=== PATIENT | female | born 1985 | race Caucasian/White ===

== ENCOUNTER 2017-06-21 02:48 | Emergency (ER) | payer SELFPAY ==
[2017-06-21] MEDS ORDERED: Lorazepam 2 MG/ML VIAL ONE (03:14)
== END 2017-06-21 05:14 | disposition home or self-care (01) ==
LOC: SCSER 02:48
DX: F41.9 Anxiety disorder, unspecified (principal); R11.2 Nausea with vomiting, unspecified; E11.9 Type 2 diabetes mellitus without complications; E78.5 Hyperlipidemia, unspecified; F32.9 Major depressive disorder, single episode, unspecified; Z79.4 Long term (current) use of insulin; Z79.899 Other long term (current) drug therapy
CPT/HCPCS: 96372; J2060

== ENCOUNTER 2017-06-23 10:04 | Emergency (ER) | payer SELFPAY ==
[2017-06-23 10:57] LABS: Hematocrit 35.3 % (36.0-47.0); Mean Platelet Volume 8.3 fL (7.4-10.4); Red Blood Cell (RBC) Count 3.92 mill/uL (4.20-5.40); White Blood Cell (WBC) Count 10.1 thou/uL (4.8-10.8)
[2017-06-23 11:06] LABS: ALT (SGPT) 17 U/L (8-55); AST (SGOT) 10 U/L (5-34); Alkaline Phosphatase 57 U/L (40-150); Anion Gap 13 mmol/L (10-20); BUN (Urea Nitrogen) 8 mg/dL (7.0-18.7); Bilirubin, Total 0.5 mg/dL (0.2-1.2); Calc. Creatinine Clearance 0 mL/min (70-130); Calcium 9.4 mg/dL (7.8-10.44); Carbon Dioxide 29 mmol/L (22-29); Chloride 103 mmol/L (98-107); Estimated GFR-MDRD Greater than 90; Globulin 2.9 g/dL (2.4-3.5); Protein, Total 6.8 g/dL (6.0-8.3)
[2017-06-23 11:08] LABS: #Basophils 0.1 thou/uL (0.0-0.2); #Eosinphils 0.4 thou/uL (0.0-0.7); #Lymphocytes 2.2 thou/uL (1.20-3.40); #Monocytes 0.4 thou/uL (0.11-0.59); %Basophils 0.7 % (0.0-1.0); %Eosinophils 3.8 % (0.0-10.0); %Lymphocytes 22.2 % (21.0-51.0)
[2017-06-23 11:10] LABS: Troponin I Less than 0.010 ng/mL (< 0.028)
== END 2017-06-23 11:30 | disposition home or self-care (01) ==
LOC: SCSER 10:04
DX: F41.9 Anxiety disorder, unspecified (principal); R60.0 Localized edema; E78.5 Hyperlipidemia, unspecified; E11.9 Type 2 diabetes mellitus without complications; F32.9 Major depressive disorder, single episode, unspecified; Z79.4 Long term (current) use of insulin; Z79.899 Other long term (current) drug therapy
CPT/HCPCS: 80053; 82553; 83880; 84484; 84703; 85025; 85379; 93005

== ENCOUNTER 2017-06-27 07:01 | Emergency (ER) | payer SELFPAY ==
[2017-06-27] MEDS ORDERED: Ondansetron ODT 4 MG TAB ONE (08:51)
== END 2017-06-27 08:25 | disposition home or self-care (01) ==
LOC: SCSER 07:01
DX: K56.41 Fecal impaction (principal); E11.9 Type 2 diabetes mellitus without complications; E78.5 Hyperlipidemia, unspecified; F41.9 Anxiety disorder, unspecified; F32.9 Major depressive disorder, single episode, unspecified; Z79.4 Long term (current) use of insulin; Z79.899 Other long term (current) drug therapy
CPT/HCPCS: 36416; 99283; Q0162

== ENCOUNTER 2017-07-02 19:57 | Emergency (ER) | payer SELFPAY ==
[2017-07-02] MEDS ORDERED: Ketorolac Tromethamine 60 MG/2 ML VIAL ONE (20:53)
[2017-07-02 21:10] LABS: Bilirubin Small (Negative); Blood, Urine Negative (Negative); Glucose, Urine (Dipstick) Negative (Negative); Ketone, Urine Trace mg/dL (Negative); Nitrite Negative (Negative); Protein, Urine (Dipstick) Negative (Neg-Trace)
== END 2017-07-02 21:50 | disposition home or self-care (01) ==
LOC: SCSER 19:57
DX: M62.830 Muscle spasm of back (principal); E11.9 Type 2 diabetes mellitus without complications; E78.5 Hyperlipidemia, unspecified; F41.9 Anxiety disorder, unspecified; F32.9 Major depressive disorder, single episode, unspecified
CPT/HCPCS: 81003; 81025; 96372; J1885

== ENCOUNTER 2017-08-26 04:48 | Emergency (ER) | payer OTHER, SELFPAY ==
[2017-08-26] MEDS ORDERED: Promethazine HCl 25 MG/ML VIAL ONE (05:16)
[2017-08-26 05:23] LABS: #Basophils 0.1 thou/uL (0.0-0.2); #Eosinphils 0.2 thou/uL (0.0-0.7); #Lymphocytes 2.2 thou/uL (1.20-3.40); #Monocytes 0.5 thou/uL (0.11-0.59); #Neutrophils 9.7 thou/uL (1.40-6.50); %Basophils 0.9 % (0.0-1.0); %Eosinophils 1.5 % (0.0-10.0); %Lymphocytes 17.2 % (21.0-51.0); Hematocrit 41.8 % (36.0-47.0); Mean Platelet Volume 8.2 fL (7.4-10.4); Red Blood Cell (RBC) Count 4.84 mill/uL (4.20-5.40); White Blood Cell (WBC) Count 12.7 thou/uL (4.8-10.8)
[2017-08-26 05:34] LABS: ALT (SGPT) 16 U/L (8-55); AST (SGOT) 14 U/L (5-34); Alkaline Phosphatase 75 U/L (40-150); Anion Gap 18 mmol/L (10-20); BUN (Urea Nitrogen) 12 mg/dL (7.0-18.7); Bilirubin, Total 0.5 mg/dL (0.2-1.2); Calc. Creatinine Clearance 0 mL/min (70-130); Calcium 9.8 mg/dL (7.8-10.44); Carbon Dioxide 22 mmol/L (22-29); Chloride 103 mmol/L (98-107); Estimated GFR-MDRD 88; Globulin 3.7 g/dL (2.4-3.5); Lipase 50 U/L (8-78); Protein, Total 7.9 g/dL (6.0-8.3)
== END 2017-08-26 06:28 | disposition home or self-care (01) ==
LOC: SCSER 04:48
DX: E11.43 Type 2 diabetes mellitus with diabetic autonomic (poly)neuropathy (principal); K31.84 Gastroparesis; R11.2 Nausea with vomiting, unspecified; E78.5 Hyperlipidemia, unspecified; F41.9 Anxiety disorder, unspecified; F32.9 Major depressive disorder, single episode, unspecified; Z79.4 Long term (current) use of insulin; Z79.899 Other long term (current) drug therapy
CPT/HCPCS: 80053; 83690; 84703; 85025; 96365; J2550

== ENCOUNTER 2017-08-26 12:30 | Emergency (ER) | payer SELFPAY ==
[2017-08-26] MEDS ORDERED: Lorazepam 2 MG/ML VIAL ONE (13:00)
[2017-08-26] MEDS ORDERED: Ondansetron HCl/PF 4 MG/2 ML Vial ONE (13:15)
[2017-08-26] MEDS ORDERED: Haloperidol Lactate 5 MG/ML VIAL ONE ×2 (13:37→15:19)
[2017-08-26 13:57] LABS: Bilirubin Negative (Negative); Blood, Urine Negative (Negative); Glucose, Urine (Dipstick) >=1000 mg/dL (Negative); Ketone, Urine 40 mg/dL (Negative); Nitrite Negative (Negative); Protein, Urine (Dipstick) Negative (Neg-Trace); Urobilinogen 0.2 mg/dL (0.2-1.0)
[2017-08-26] MEDS ORDERED: Pantoprazole 40 MG VIAL ONE (14:00)
[2017-08-26] MEDS ORDERED: Mag-Al 1200 mg/1200 mg/30 ML UDCUP ONE (14:02)
[2017-08-26] MEDS ORDERED: Lidocaine Viscous Sol 2% 15 ml UD Cup ONE (14:02)
== END 2017-08-26 17:04 | disposition home or self-care (01) ==
LOC: ERS 12:30
DX: R10.30 Lower abdominal pain, unspecified (principal); Z91.14 Patient's other noncompliance with medication regimen; E78.5 Hyperlipidemia, unspecified; E11.43 Type 2 diabetes mellitus with diabetic autonomic (poly)neuropathy; K31.84 Gastroparesis; F41.9 Anxiety disorder, unspecified; F32.9 Major depressive disorder, single episode, unspecified; Z79.4 Long term (current) use of insulin; Z79.899 Other long term (current) drug therapy
CPT/HCPCS: 36416; 81003; 96365; 96375; 96376; C9113; J1630; J2060; J2405

== ENCOUNTER 2017-08-28 02:57 | Observation (INO) | payer OTHER, SELFPAY ==
[2017-08-28] MEDS ORDERED: Promethazine HCl 25 MG/ML VIAL ONE (03:32)
[2017-08-28 03:52] LABS: #Lymphocytes 1.3 thou/uL (1.20-3.40); #Monocytes 0.4 thou/uL (0.11-0.59); #Neutrophils 7.9 thou/uL (1.40-6.50); %Basophils 0.4 % (0.0-1.0); %Eosinophils 0.5 % (0.0-10.0); %Lymphocytes 13.1 % (21.0-51.0); %Monocytes 4.4 % (0.0-10.0); Hematocrit 39.9 % (36.0-47.0); Mean Platelet Volume 7.6 fL (7.4-10.4); White Blood Cell (WBC) Count 9.6 thou/uL (4.8-10.8)
[2017-08-28 04:13] LABS: ALT (SGPT) 16 U/L (8-55); AST (SGOT) 13 U/L (5-34); Alkaline Phosphatase 69 U/L (40-150); Anion Gap 15 mmol/L (10-20); BUN (Urea Nitrogen) 12 mg/dL (7.0-18.7); Bilirubin, Total 0.7 mg/dL (0.2-1.2); Calc. Creatinine Clearance 0 mL/min (70-130); Calcium 9.3 mg/dL (7.8-10.44); Carbon Dioxide 22 mmol/L (22-29); Chloride 103 mmol/L (98-107); Estimated GFR-MDRD Greater than 90; Globulin 3.3 g/dL (2.4-3.5); Lipase 18 U/L (8-78); Protein, Total 7.4 g/dL (6.0-8.3)
[2017-08-28] MEDS ORDERED: Metoclopramide HCl 10 MG/2 ML VIAL ONE (04:25)
[2017-08-28 05:28] LABS: Bilirubin Negative (Negative); Blood, Urine Small (Negative); Glucose, Urine (Dipstick) 100 mg/dL (Negative); Ketone, Urine 80 mg/dL (Negative); Nitrite Negative (Negative); Protein, Urine (Dipstick) Negative (Neg-Trace); Urobilinogen 0.2 mg/dL (0.2-1.0)
[2017-08-28 05:30] LABS: Bacteria/HPF None Seen HPF (None Seen); Hyaline Casts/LPF 7-10 HYALINE CAST LPF (0-3 Hyaline); RBC/HPF 0-3 HPF (0-3); Squamous Epithelial 0-3 HPF (0-3); WBC/HPF 0-3 HPF (0-3)
[2017-08-28] MEDS ORDERED: Lorazepam 2 MG/ML VIAL ONE (06:49)
[2017-08-28] MEDS ORDERED: HumaLOG 300 UNITS/3 ML VIAL SC PRN (07:44)
[2017-08-28] MEDS ORDERED: Metoclopramide HCl 10 MG/2 ML VIAL IVP PRN (07:44)
[2017-08-28] MEDS ORDERED: Ondansetron ODT 4 MG TAB PO PRN ×2 (07:44→14:27)
[2017-08-28] MEDS ORDERED: Acetaminophen 325 MG TAB PO PRN (07:44)
[2017-08-28] MEDS ORDERED: Promethazine HCl 25 MG/ML VIAL IM/IV PRN (07:44)
[2017-08-28] MEDS ORDERED: Sodium Chloride 0.9% 1,000 ML IV SCH (07:44)
[2017-08-28] MEDS ORDERED: Dextrose 5% in Water 1,000 ML IV PRN (07:44)
[2017-08-28] MEDS ORDERED: Dextrose 50% Abboject 50 ML SYRINGE SLOW IVP PRN (07:44)
[2017-08-28] MEDS ORDERED: Ondansetron HCl/PF 4 MG/2 ML Vial IVP PRN (07:44)
[2017-08-28] MEDS ORDERED: Promethazine HCl 25 MG/ML VIAL IM PRN (07:46)
--- NOTE | 2017-08-28 07:58 | CT ---
PRELIMINARY REPORT/[facility]/EMERGENCY AFTER HOURS PROCEDURE: EXAM: CT Abdomen and Pelvis With Intravenous Contrast EXAM DATE/TIME: Exam ordered 08/28/2017 4:44 AM CLINICAL HISTORY: 32 years old, female; Pain; Abdominal pain; Generalized TECHNIQUE: Axial computed tomography images of the abdomen and pelvis with intravenous contrast. Coronal reformatted images were created and reviewed. CONTRAST: 100 mL of ISOVUE administered intravenously. COMPARISON: No relevant prior studies available. FINDINGS: Lower thorax: No acute findings. ABDOMEN: Liver: There is a small region of focal fatty infiltration adjacent to the falciform ligament. Gallbladder and bile ducts: There has been a cholecystectomy. No ductal dilation. Pancreas: The pancreas is normal. No ductal dilation. Spleen: The spleen is normal. Adrenals: The adrenal glands are normal. Kidneys and ureters: The kidneys are normal. No hydronephrosis. Stomach and bowel: The stomach is normal. The duodenum is unremarkable. No obstruction. No mucosal th ickening. Appendix: A normal appendix is identified. PELVIS: Bladder: The bladder is normal. Reproductive: The uterus is normal. ABDOMEN and PELVIS: Intraperitoneal space: Normal. No free air. No significant fluid collection. Bones/joints: No acute fracture or dislocation. Soft tissues: There is a fat-containing umbilical hernia. Vasculature: Normal. No abdominal aortic aneurysm. Lymph nodes: Normal. No enlarged lymph nodes. IMPRESSION: No acute abdominal pelvic pathology. Thank you for allowing us to participate in the care of your patient. Dictated and Authenticated by: Payam Goode MD 08/28/2017 5:23 AM Central Time ([place] & [place]) FINAL REPORT CT ABDOMEN AND PELVIS WITH IV CONTRAST: I agree with the preliminary report given by Dr. Payam Goode of [facility]. POS: [facility]
[2017-08-28 08:01] LABS: Hemoglobin A1c 5.3 % (4.0-6.0)
--- NOTE | 2017-08-28 08:12 | HP-2 ---
CODE STATUS: FULL. PRIMARY CARE PHYSICIAN: Dr. Perrin ATTENDING: Dr. Murphy Calle RESIDENT: Dr. Josette Chamberlain CHIEF COMPLAINT: Nausea, vomiting. HISTORY OF PRESENT ILLNESS: This is a 32-year-old female with past medical history of diabetes mellitus type 2 and marijuana abuse who presents with intractable nausea and vomiting. The patient states that she vomited 14 times overnight. She was seen in the emergency department yesterday and given Phenergan; however, she has not had any relief in symptoms. The patient does see Dr. Perrin and has been prescribed Zofran and Reglan for persistent nausea and vomiting. The patient states she has been unable to keep much down for the past couple of days. She also endorses anxiety and panic attacks Last panic attack was last night. Medications did not help. She endorses marijuana use and states the last time she used was 2 weeks ago. In the ER, the patient was given Phenergan 25 mg, Reglan 10 mg, normal saline 1 liter in the emergency department. PAST MEDICAL HISTORY: 1. Diabetes mellitus type 2. 2. Cannabis abuse. 3. Generalized anxiety disorder. 4. Depression. 5. Fibromyalgia. 6. Severe erosive esophagitis. 7. Hyperlipidemia. 8. Presumed gastroparesis. PAST SURGICAL HISTORY: Cholecystectomy. ALLERGIES: No known drug allergies. MEDICATIONS: 1. Gabapentin 600 mg oral t.i.d. 2. NovoLog 70/30 15 units subcu b.i.d. 3. Zofran 4 mg q.8h. p.r.n. 4. Protonix delayed release 20 mg daily. 5. Reglan 10 mg t.i.d. 6. Buspirone 10 mg t.i.d. 7. Olanzapine 10 mg oral at bedtime. 8. Oxcarbazepine 300 mg b.i.d. 9. Clonazepam 2 mg oral b.i.d. 10. Tramadol 50 mg oral p.r.n. for pain. 11. Zoloft 25 mg q.a.m. FAMILY HISTORY: Noncontributory. SOCIAL HISTORY: The patient denies tobacco or alcohol use. She does endorse marijuana use, last time she used marijuana was 2 weeks ago. REVIEW OF SYSTEMS: A 12 point review of systems was performed. All were negative except as listed in the HPI and as indicated below. The patient does endorse chills overnight. Additionally, she has palpitations and chest discomfort associated with her panic attacks. PHYSICAL EXAMINATION: VITAL SIGNS: Blood pressure 164/98, pulse 82, respiratory rate 18, T-max 97.9, pulse oximetry 99% on room air, currently 99 kilograms. GENERAL: The patient alert and oriented x3, no acute distress, well-developed, well-nourished, obese. EYES: Pupils equal, round, reactive to light and accommodation. Conjunctivae within normal limits. ENT: Nasal mucosa within normal limits. NECK: Supple. CARDIOVASCULAR: Regular rate and rhythm. No murmurs. Radial and pedal pulses 2+. RESPIRATORY: Normal respiratory effort, no retractions, clear to auscultation bilaterally. SKIN: Pale: Warm and dry. No cyanosis or lesions. ABDOMEN: Soft, nontender to palpation. Bowel sounds positive in all 4 quadrants. No masses or distention. EXTREMITIES: No clubbing, cyanosis or edema. MUSCULOSKELETAL: Structure within normal limit. NEUROLOGIC: No focal deficits. GCS 15. PSYCHIATRIC: The patient appeared anxious on exam. LABORATORY DATA: CBC reveals a white blood cell count 9.6, hemoglobin 14.1, hematocrit 39.9, platelet 219. CMP: Sodium 136, potassium 2.6, chloride 103, bicarb 22, BUN 12, creatinine 0.71, glucose 196, calcium 9.3, total protein 7.4, albumin 4.1, total bilirubin 0.7, AST 13, ALT 16, alkaline phosphatase 69. Beta hCG negative. Lipase 18. UA showed small blood with 80 ketones and 100 glucose. There was some hyaline casts 7-10. Abdominal x-ray; no official read; however, there does not appear to be any acute findings. Abdominal pelvis CT, no official read, but does not appear to be any acute findings. ASSESSMENT AND PLAN: This is a 32-year-old female with acute on chronic nausea and vomiting. 1. Acute on chronic nausea and vomiting, likely secondary to gastroparesis versus marijuana use. The patient was admitted to medical floor for observation. She was given additional liter of fluids in the emergency department. She will be placed on normal saline at 150 mL per hour. We will continue Phenergan, Zofran and Reglan for nausea and attempt a p.o. challenge. Hemoglobin A1c is pending to determine how well controlled her diabetes is. 2. Diabetes mellitus type 2. We will continue her home medications, put her on mild sliding scale insulin with appropriate Accu-Cheks. Hemoglobin A1c pending. Gastroparesis secondary to diabetes mellitus type 2 could be contributing to nausea and vomiting. 3. Generalized anxiety disorder/mood disorder. The patient was recently admitted to [facility]. We will continue her medications to include Zoloft, Trileptal and olanzapine. DISPOSITION AND LENGTH OF HOSPITAL STAY: 2 days. Symptomatic medications will be provided. History and physical exam as well as management discussed with Dr. Calle. ANGI
--- NOTE | 2017-08-28 08:28 | RAD ---
KUB: HISTORY: Abdominal pain. Vomiting. FINDINGS: The bowel gas pattern appears nonobstructive. Surgical clips are consistent with a prior cholecystec karma. No renal calculi are seen. There are arthritic changes of the spine. IMPRESSION: No acute findings. POS: [facility]
[2017-08-28] MEDS ORDERED: Famotidine/PF 20 mg/2ml Vial ONE (08:45)
[2017-08-28 08:46] LABS: Amphetamine Not Detected (NotDetected); Methadone Not Detected (NotDetected); Methamphetamine Not Detected (NotDetected)
[2017-08-28] MEDS ORDERED: Famotidine/PF 20 mg/2ml Vial SLOW IVP SCH (09:00)
[2017-08-28 10:17] VITALS: BMI 33.2
--- NOTE | 2017-08-28 12:29 | PDOC.EVN ---
Attending Addendum - Attending Addendum I personally evaluated the patient and discussed the management with Dr. Chamberlain. I agree with the History, Examination, Assessment and Plan documented above with any addition or exceptions noted below. Patient here with multiple episodes of nausea/vomiting after what sounds like a panic attack overnight. Patient reports this is a chronic issue. She had hospitalization a few months ago with GI involvement and EGD that was normal. She was discharged on Reglan, Protonix for possible gastroparesis. However, her current history of vomiting does not sound consistent with gastroparesis. She will be given fluids, nausea medications PRN, and will see if she can tolerate diet. Her CT does not show evidence of pathology. Patient UDS positive for marijuana and this could be contributing to her chronic nausea. Advised abstaining from drug use. Monitor and consider discharge whenever tolerating PO. Needs outpatient follow up with PCP and [facility].
[2017-08-28] MEDS ORDERED: Promethazine HCl 25 MG/ML VIAL IM SCH (12:30)
[2017-08-28] MEDS ORDERED: ISOVUE-370 76%-LOCM 1 ML ONE (13:34)
[2017-08-28] MEDS ORDERED: Diazepam 5 MG TAB PO PRN (14:27)
[2017-08-28] MEDS ORDERED: Gabapentin 300 MG CAP PO SCH (15:00)
[2017-08-28] MEDS ORDERED: Metoclopramide HCl 10 MG TAB PO SCH (15:00)
[2017-08-28 15:35] VITALS: TEMP 98.6
[2017-08-28 16:20] VITALS: BP 135/85
[2017-08-28] MEDS ORDERED: busPIRone HCl 10 MG TAB PO SCH (21:00)
[2017-08-28] MEDS ORDERED: Insulin NPH/Reg Insulin Hm 300 UNITS/3 ML VIAL SC SCH (21:00)
--- NOTE | 2017-08-29 03:06 | DIS-2 ---
DATE OF ADMISSION: 08/28/2017 DATE OF DISCHARGE: 08/28/2017 ADMITTING ATTENDING: Murphy Calle MD DISCHARGE ATTENDING: Murphy Calle MD RESIDENT: Lan Hickey MD. CONSULTATIONS: [facility], but they were not going to see her, as she was not suicidal at this time. PROCEDURES: None. She did get an abdomen x-ray, which showed no acute findings. Abdomen and pelvis CT, which showed no acute abdominal pelvic pathology. DISCHARGE MEDICATIONS: Acetaminophen 325 mg tablet, buspirone 10 mg p.o. b.i.d., diazepam 5 mg p.o. p.r.n., gabapentin 600 mg p.o. t.i.d., insulin Novolin 70/30 of 15 units subcutaneous b.i.d., metoclo pramide 10 mg p.o. t.i.d., Zyprexa 5 mg p.o. daily, ondansetron 4 mg p.o. q.8 hours, pantoprazole 40 mg p.o. daily, sertraline 50 mg p.o. daily. PRIMARY DIAGNOSES: 1. Severe generalized anxiety disorder with ongoing panic attack. 2. Acute on chronic nausea likely secondary to cannabinoid hyperemesis syndrome. 3. Diabetes mellitus, type 2. HISTORY OF PRESENT ILLNESS AND BRIEF HOSPITAL COURSE: This is a 32-year-old female who has had multi ple ER visits from the last 5 days, has a history of diabetes mellitus type 2 and marijuana abuse. S he states that she vomited 14 times overnight, but when we saw her in the ER room, she was just super anxious, very, very worked up, she just said she was alone at home, got scared, got worked up, just had this pain coming up in her abdomen. When we saw her drink, she would take a drink of water and i mmediately throw up. We would give her some Phenergan, if she started on Phenergan, she would then l ater eat lunch and would be able to keep it down, but all during this time she was super anxious and scared to be going home. She never reported being suicidal and we did a urine drug screen, which radha wed that she was positive for marijuana and she said she had smoked in the last 2 weeks, but after ta lking to her, she said she did have recently smoked more recently. At this time, we attributed that her vomiting was likely due to cannabinoid hyperemesis syndrome. I did not see signs of gastroparesi s symptoms. At this time, we tried counseling with [facility], but they were not comes here due to the hol idays and that she was not suicidal, but she does have an appointment with them on 09/14/2017. We to ld her that she needs to follow up with them. We told her that we gave her some resources to look up cognitive behavioral therapies online and she can maybe try at home and told her to use the [facility] hot line as needed. DISPOSITION: Stable. DISCHARGE INSTRUCTIONS: 1. Location: Home. 2. Diet: Diabetic diet. 3. Activity: Tolerated. 4. Followup: We will need to follow up with her primary care physician within 14 days. I mentioned to her that she needs to mention to them about maybe she needs to set up to cognitive behavioral the rapy and then also needs to follow up with her [facility] on scheduled appointment on September.
[2017-08-29] MEDS ORDERED: OLANZapine 5 MG TAB PO SCH (09:00)
== END 2017-08-28 18:24 | disposition home or self-care (01) ==
LOC: ERS 02:57 → ERHOLD 05:51 → 2SW 10:10
PROVIDERS: ADMIT Family Medicine; ATTEND Family Medicine
DX: R11.2 Nausea with vomiting, unspecified (principal); F41.1 Generalized anxiety disorder; E11.9 Type 2 diabetes mellitus without complications; E78.5 Hyperlipidemia, unspecified; F12.10 Cannabis abuse, uncomplicated; Z79.4 Long term (current) use of insulin; Z79.899 Other long term (current) drug therapy; Z90.49 Acquired absence of other specified parts of digestive tract
CPT/HCPCS: 36415; 36416; 51701; 74000; 74177; 80053; 80306; 81003; 81015; 83036; 83690; 84443; 84703; 85025; 96361; 96365; 96367; 96375; A4353; G0378; J2060; J2550; J2765; S0028

== ENCOUNTER 2017-08-29 11:08 | Emergency (ER) | payer SELFPAY ==
[2017-08-29] MEDS ORDERED: diphenhydrAMINE 50 MG/ML VIAL ONE (11:44)
[2017-08-29] MEDS ORDERED: Metoclopramide HCl 10 MG/2 ML VIAL ONE (11:44)
[2017-08-29 12:03] LABS: #Eosinphils 0.1 thou/uL (0.0-0.7); #Monocytes 0.4 thou/uL (0.11-0.59); #Neutrophils 5.8 thou/uL (1.40-6.50); %Basophils 0.3 % (0.0-1.0); %Eosinophils 1.4 % (0.0-10.0); %Lymphocytes 23.8 % (21.0-51.0); %Monocytes 5.1 % (0.0-10.0); Hematocrit 38.8 % (36.0-47.0); Mean Platelet Volume 7.3 fL (7.4-10.4); Red Blood Cell (RBC) Count 4.19 mill/uL (4.20-5.40); White Blood Cell (WBC) Count 8.3 thou/uL (4.8-10.8)
[2017-08-29 12:18] LABS: Bilirubin Small (Negative); Blood, Urine Negative (Negative); Glucose, Urine (Dipstick) Negative (Negative); Ketone, Urine > or equal to 80 mg/dL (Negative); Nitrite Negative (Negative); Protein, Urine (Dipstick) Trace mg/dL (Neg-Trace)
[2017-08-29 12:20] LABS: Bacteria/HPF Rare-Few HPF (None Seen); Hyaline Casts/LPF 0-3 HYALINE CAST LPF (0-3 Hyaline); RBC/HPF 0-3 HPF (0-3); Squamous Epithelial 0-3 HPF (0-3); WBC/HPF 0-3 HPF (0-3)
[2017-08-29] MEDS ORDERED: Diazepam 5 MG TAB ONE (12:21)
[2017-08-29 12:27] LABS: ALT (SGPT) 26 U/L (8-55); AST (SGOT) 23 U/L (5-34); Alkaline Phosphatase 66 U/L (40-150); Anion Gap 14 mmol/L (10-20); BUN (Urea Nitrogen) 7 mg/dL (7.0-18.7); Bilirubin, Total 0.9 mg/dL (0.2-1.2); Calc. Creatinine Clearance 0 mL/min (70-130); Calcium 9.1 mg/dL (7.8-10.44); Carbon Dioxide 23 mmol/L (22-29); Chloride 105 mmol/L (98-107); Estimated GFR-MDRD Greater than 90; Globulin 3.2 g/dL (2.4-3.5); Lipase 5 U/L (8-78); Magnesium 2.1 mg/dL (1.6-2.6); Protein, Total 7.4 g/dL (6.0-8.3)
[2017-08-29] MEDS ORDERED: Haloperidol Lactate 5 MG/ML VIAL ONE (14:00)
[2017-08-29] MEDS ORDERED: Potassium Chloride 20 MEQ TAB ONE (14:45)
== END 2017-08-29 16:32 | disposition home or self-care (01) ==
LOC: ERS 11:08
DX: E11.43 Type 2 diabetes mellitus with diabetic autonomic (poly)neuropathy (principal); K31.84 Gastroparesis; E87.6 Hypokalemia; E78.5 Hyperlipidemia, unspecified; F41.9 Anxiety disorder, unspecified; F32.9 Major depressive disorder, single episode, unspecified
CPT/HCPCS: 36415; 80053; 81003; 81015; 83690; 83735; 85025; 96365; 96366; 96375; J1200; J1630; J2765

== ENCOUNTER 2018-01-10 08:15 | Observation (INO) | payer MEDICAID, OTHER ==
[2018-01-10] MEDS ORDERED: Metoclopramide HCl 10 MG/2 ML VIAL ONE (08:32)
[2018-01-10] MEDS ORDERED: Insulin Regular 300 UNITS/3 ML VIAL ONE (08:32)
[2018-01-10 08:47] LABS: #Basophils 0.1 thou/uL (0.0-0.2); #Eosinphils 0.2 thou/uL (0.0-0.7); #Lymphocytes 3.1 thou/uL (1.20-3.40); #Monocytes 0.8 thou/uL (0.11-0.59); #Neutrophils 12.5 thou/uL (1.40-6.50); %Basophils 0.3 % (0.0-1.0); %Lymphocytes 18.6 % (21.0-51.0); %Monocytes 4.7 % (0.0-10.0); %Neutrophils 75.4 % (42.0-75.0); Hemoglobin 15.3 g/dL (12.0-16.0); Mean Corpuscular HGB CONC 36.3 g/dL (32.0-36.0); Mean Corpuscular Hemoglobin 31.9 pg (27.0-31.0); Mean Corpuscular Volume 87.9 fl (81.0-99.0); Mean Platelet Volume 7.7 fL (7.4-10.4); Platelet Count 309 thou/uL (130-400); RBC Distribution Width 11.6 % (11.5-14.5); White Blood Cell (WBC) Count 16.5 thou/uL (4.8-10.8)
[2018-01-10 08:51] LABS: Base Excess-Venous 0.3 mmol/L (0 (+/- 2.5)); Bicarbonate (HCO3v) 20.7 mmol/L (1.0-85.0); CO2 Tension (PvCO2) 23.5 mmHg (41.0-51.0); Calcium, Ionized 1.06 mmol/L (1.12-1.32); Hemoglobin - Calc 15.3 g/dL (12.0-18.0); O2 Tension (PvO2) 72.6 mmHg (35.0-45.0); Potassium 3.6 mmol/L (3.4-4.7); T. Carbon Dioxide 21.4 mmol/L (1.0-85.0); pH (Venous) 7.552 (7.35-7.45); vO2 Saturation-calc 96.6 % (94-98)
[2018-01-10 09:11] LABS: ALT (SGPT) 23 U/L (8-55); AST (SGOT) 14 U/L (5-34); Acetaminophen Less than 6.0 mcg/mL (10.0-30.0); Albumin 4.3 g/dL (3.5-5.0); Alcohol Less than 10 mg/dL (Less than 10); Alkaline Phosphatase 99 U/L (40-150); Anion Gap 18 mmol/L (10-20); BUN (Urea Nitrogen) 13 mg/dL (7.0-18.7); Bilirubin, Total 0.7 mg/dL (0.2-1.2); Calc. Creatinine Clearance 0 mL/min (70-130); Calcium 9.7 mg/dL (7.8-10.44); Carbon Dioxide 18 mmol/L (22-29); Chloride 99 mmol/L (98-107); Estimated GFR-MDRD 80; Globulin 3.8 g/dL (2.4-3.5); Glucose 424 mg/dL (70-105); Lipase 43 U/L (8-78); Magnesium 1.7 mg/dL (1.6-2.6); Potassium 3.6 mmol/L (3.5-5.1); Protein, Total 8.1 g/dL (6.0-8.3); Salicylate Less than 8.0 mg/dL (15.0-30.0); Sodium 131 mmol/L (136-145)
[2018-01-10 09:13] LABS: Phosphorus 1.8 mg/dL (2.3-4.7)
[2018-01-10] MEDS ORDERED: Lorazepam 2 MG/ML VIAL ONE (09:21)
[2018-01-10 10:06] LABS: Bilirubin Negative (Negative); Blood, Urine Negative (Negative); Clarity CLEAR (Clear); Glucose, Urine (Dipstick) 500 mg/dL (Negative); Leukocyte Negative (Negative); Nitrite Negative (Negative); Protein, Urine (Dipstick) Negative (Neg-Trace); Specific Gravity, Urine 1.036 (1.002-1.036); Urobilinogen 0.2 mg/dL (0.2-1.0)
[2018-01-10 10:07] LABS: Pregnancy Test - Urine (BHCG) Negative (Negative); Pregu Control Background? CLEAR/WHITE (CLR/WHITE); Pregu Control Bar Appear? YES (CONTROL BAR); Specific Gravity 1.036 (1.002-1.036)
[2018-01-10 10:17] LABS: Amphetamine Not Detected (NotDetected); Barbiturates Screen Not Detected (NotDetected); Benzodiazepine Screen Not Detected (NotDetected); Cocaine Metabolite Screen Not Detected (NotDetected); Medtox Control Line Valid? VALID (VALID); Medtox Reader # READER 1; Methadone Not Detected (NotDetected); Methamphetamine Not Detected (NotDetected); Opiate Screen Not Detected (NotDetected); Oxycodone Screen Not Detected (NotDetected); Phencyclidine (PCP) Not Detected (NotDetected); THC/Cannabinoid Screen Detected (NotDetected); Tricyclic Screen Detected (NotDetected)
[2018-01-10] MEDS ORDERED: Ondansetron ODT 8 MG TAB ONE (10:24)
[2018-01-10] MEDS ORDERED: Dextrose 5% in Water 1,000 ML IV PRN (11:33)
[2018-01-10] MEDS ORDERED: Insulin Regular 300 UNITS/3 ML VIAL SC PRN (11:33)
[2018-01-10] MEDS ORDERED: Dextrose 50% Abboject 50 ML SYRINGE SLOW IVP PRN (11:33)
[2018-01-10] MEDS ORDERED: Ondansetron HCl/PF 4 MG/2 ML Vial IVP PRN (11:33)
[2018-01-10] MEDS ORDERED: Acetaminophen 325 MG TAB PO PRN (11:33)
--- NOTE | 2018-01-10 11:42 | PDOC.FPRHP ---
- History of Present Illness Chief Complaint: nausea and vomiting History of Present Illness: Lexis Albrecht is a 32 year old female with a PMH of Type 2 DM, diabetic gastroparesis, chronic back pain, fibromyalgia, anxiety/depression, and peripheral neuropathy who presents with a one day history of nausea and vomiting. Patient is a poor history on our exam. She was given Ativan in the ER for agitation and she does not provide much history. She does state that the nausea and vomiting began this morning. States that this has happened in the past but has not yet happened this year. She endorses constant, crampy diffuse abdominal pain, no radiation. Denies fevers, chills, chest pain, dyspnea, recent illnesses. She is having normal bowel movements, including 2 in the ED prior to be moved to the floor. There is no blood in her stool. ED Course: In the ED, she received 2L of NS, bentyl, zofran, reglan, and ativan. - Allergies/Adverse Reactions Allergies Allergy/AdvReac Type Severity Reaction Status Date / Time No Known Drug Allergies Allergy Verified 05/13/17 16:59 - Home Medications Medication Instructions Recorded Confirmed Type Gabapentin [Neurontin] 600 mg PO TID #90 cap 05/15/17 01/10/18 Rx Insulin NPH Hum/Reg Insulin HM 15 unit SC BID 06/17/17 01/10/18 History [Novolin 70/30] Ondansetron [Zofran ODT] 4 mg PO Q8HR PRN #20 tab 06/19/17 01/10/18 Rx OLANZapine [ZyPREXA] 5 mg PO DAILY 08/28/17 01/10/18 History Sertraline HCl [Zoloft] 100 mg PO DAILY 08/28/17 01/10/18 History busPIRone HCl [Buspar] 10 mg PO BID 08/28/17 01/10/18 History clonazePAM 2 mg PO DAILY PRN 01/10/18 01/10/18 History - History PMHx: Type 2 Diabetes Mellitus, Peripheral Neuropathy, Gastroparesis, Chronic Back Pain, Fibromyalgia, Anxiety/Depression PSHx: Cholecystectomy 2005 FHx: Breast Cancer-maternal side Social: single, lives alone - Review of Systems ROS unobtainable: due to mental status (prior to encounter received ativan and was not all too helpful in providing history) General: reports: weight/appetite/sleep changes. denies: fever/chills, night sweats, fatigue Eyes: denies: eye pain, vision changes ENT: denies: nasal congestion, rhinorrhea Respiratory: denies: cough, congestion, shortness of breath Cardiovascular: denies: chest pain, palpitation, edema, paroxysmal nocturnal dyspnea Gastrointestinal: reports: nausea, vomiting, abdominal pain. denies: diarrhea, constipation, GI bleeding Genitourinary: denies: incontinence, dysuria, polyuria, discharge Skin: denies: rashes, lesions Musculoskeletal: reports: pain. denies: tenderness, stiffness Neurological: denies: numbness, syncope, seizure Psychological: reports: anxiety, depression - Vital signs BP: 106/85 HR: 92 RR: 16 Tmax: 98.0 Pox: 100% on RA Wt: 136 kg - Physical Exam Constitutional: NAD, awake, alert and oriented, well developed HEENT: normocephalic and atraumatic, EOMI, conjunctiva clear, no scleral icterus , grossly normal vision, grossly normal hearing, normal nasal mucosa, MMM Neck: supple, FROM, trachea midline, no JVD Chest: no-tender to palpation, no lesions Heart: RRR, normal S1/S2, no murmurs/rubs/gallops, pulses present, no edema Lungs: CTAB, no respiratory distress, good air movement, no rales/rhonchi, no wheezing, no retractions Abdomen: soft, bowel sounds present, no masses/distention, no hernias -Abdomen: minimal TTP diffusely, no rebound, guarding Musculoskeletal: normal structure, normal tone, ROM grossly normal Neurological: no focal deficit, CN II-XII intact, normal sensation Skin: no rash/lesions, good turgor, capillary refill <2 seconds Heme/Lymphatic: no unusual bruising or bleeding, no purpura Psychiatric: intact recent and remote memory, other (depressed mood and affect, patient seems to lack judgement and insight) FMR H&P: Results - Labs Result Diagrams: 01/11/18 04:33 01/11/18 04:33 Lab results: WBC 16.5 thou/uL (4.8-10.8) H 01/10/18 08:31 Hgb 15.3 g/dL (12.0-16.0) 01/10/18 08:31 Hct 42.2 % (36.0-47.0) 01/10/18 08:31 MCV 87.9 fl (81.0-99.0) 01/10/18 08:31 Plt Count 309 thou/uL (130-400) 01/10/18 08:31 Neutrophils % 75.4 % (42.0-75.0) H 01/10/18 08:31 VBG pCO2 23.5 mmHg (41.0-51.0) L 01/10/18 08:43 VBG pO2 72.6 mmHg (35.0-45.0) H 01/10/18 08:43 Sodium 131 mmol/L (136-145) L 01/10/18 08:31 Potassium 3.6 mmol/L (3.5-5.1) 01/10/18 08:31 Chloride 99 mmol/L (98-107) 01/10/18 08:31 Carbon Dioxide 18 mmol/L (22-29) L 01/10/18 08:31 BUN 13 mg/dL (7.0-18.7) 01/10/18 08:31 Creatinine 0.82 mg/dL (0.6-1.1) 01/10/18 08:31 Glucose 424 mg/dL (70-105) H 01/10/18 08:31 Calcium 9.7 mg/dL (7.8-10.44) 01/10/18 08:31 Total Bilirubin 0.7 mg/dL (0.2-1.2) 01/10/18 08:31 AST 14 U/L (5-34) 01/10/18 08:31 ALT 23 U/L (8-55) 01/10/18 08:31 Alkaline Phosphatase 99 U/L (40-150) 01/10/18 08:31 Serum Total Protein 8.1 g/dL (6.0-8.3) 01/10/18 08:31 Albumin 4.3 g/dL (3.5-5.0) 01/10/18 08:31 Lipase 43 U/L (8-78) 01/10/18 08:31 Urine Ketones 40 mg/dL (Negative) H 01/10/18 09:40 Urine Blood Negative (Negative) 01/10/18 09:40 Urine Nitrite Negative (Negative) 01/10/18 09:40 Ur Leukocyte Esterase Negative (Negative) 01/10/18 09:40 - EKG Interpretation EKG: NSR FMR H&P: A/P - Problem List (1) Intractable nausea and vomiting Status: Acute Code(s): R11.2 - NAUSEA WITH VOMITING, UNSPECIFIED (2) Anxiety and depression Status: Chronic Code(s): F41.8 - OTHER SPECIFIED ANXIETY DISORDERS (3) Cannabis abuse Status: Chronic Code(s): F12.10 - CANNABIS ABUSE, UNCOMPLICATED (4) Diabetes type 2, controlled Status: Chronic Code(s): E11.9 - TYPE 2 DIABETES MELLITUS WITHOUT COMPLICATIONS (5) Obesity (BMI 30.0-34.9) Status: Chronic Code(s): E66.9 - OBESITY, UNSPECIFIED - Plan (1) Intractible Nausea and Vomiting - Place of obs/medical - Likely secondary to diabetic gastroparesis vs marijuana induced, no signs of obstruction, had BM in ED - UDS positive for marijuana - Schedule reglan and PRN zofran for n/v (2) Type 2 DM, uncontrolled - Resume current home regimen, Novolog 15 U SC BID - likely contributing to gastroparesis - Moderate SSI, accuchecks ACHS - Check hga1c (3) Substance abuse-marijuana - UDS positive for thc - residence counselor on cessation - possibly contributing to n/v (4) Anxiety and Depression - continue home regimen - PRN ativan for anxiety/agitation (5) Peripheral Neuropathy - home regimen FMR H&P: Upper Level - Pertinent history 32 yo F with PMH significant for DM2, gastroparesis, fibromyalgia, marijuana abuse presents with N/V. Denies any F/Ch, constipation, diarrhea. Has some mild diffuse abdominal pain. N/V started gradually yesterday and has worsened today. Has reglan rx at home, but was not doing enough to control her symptoms. Pt was slightly agitated on initial presentation to ER but has calmed down after receiving a 1mg dose of ativan in the ER. Currently requesting stronger medication for her nausea, a hot shower, and an Icee. - Pertinent findings VS: 98.0 92 106/85 16 100% RA Gen: Obese female, in NAD HEENT: PERRL, MMM, EOMI CV: RRR no murmurs Pulm: CTAB no wheeze Abd: mildly TTP near epigastrium EXT: no cyanosis or edema Psych: A&Ox3 - Plan Date/Time: 01/10/18 1138 32 yo F p/w N/V 1) intractable N/V: suspect this is either 2/2 uncontrolled gastroparesis vs cannabis-induced hyperemesis. UDS positive for THC. Will admit and observe with symptomatic treatment for nausea. Continue IVFs and NPO status until tolerating more po. 2) DM2: continue home medications 3) gastroparesis: as above 4) anxiety/depression: continue home medications I, [Chadd Hilario], have evaluated this patient and agree with findings/plan as outlined by manager of international resident. Pertinent changes/additions are listed here. Attending Addendum - Attending Addendum Date/Time: 01/10/182128 I personally evaluated the patient and discussed the management with Dr. Calderón, Dr. Hilario, Dr. Chamberlain, and Dr. Patterson I agree with the History, Examination, Assessment and Plan documented above with any addition or exceptions noted below. 32 yo female with multiple medical problems present with N/V. Currently improved with symptom controlled. Concerned related to gastroporesis and marijuana use. IVF provided. No other findings on exam or in history. Will treat for GERD. Reporting some burning at present. Monitor overnight. No concerning findings. Dehydration now resolved. Advanced food as tolerated. Elida
[2018-01-10 12:52] LABS: Hemoglobin A1c 7.4 % (4.0-6.0)
[2018-01-10] MEDS ORDERED: clonazePAM 1 MG TAB PO PRN (13:00)
[2018-01-10 13:28] VITALS: BMI 38.9
[2018-01-10] MEDS: Sodium Chloride 0.9% 1,000 ML IV SCH ×3 (13:38→22:48)
[2018-01-10] MEDS: Promethazine HCl 25 MG/ML VIAL IM/IV PRN ×2 (14:15→19:47)
[2018-01-10] MEDS ORDERED: Lorazepam 2 MG/ML VIAL SLOW IVP PRN (15:00)
[2018-01-10] MEDS: Gabapentin 300 MG CAP PO SCH ×3 (16:09→20:25)
[2018-01-10] MEDS: Lorazepam 2 MG/ML VIAL SLOW IVP PRN (16:10)
[2018-01-10] MEDS: Metoclopramide HCl 10 MG/2 ML VIAL IVP SCH (17:02)
[2018-01-10] MEDS: OLANZapine 5 MG TAB PO SCH ×3 (19:46→23:09)
[2018-01-10] MEDS: busPIRone HCl 10 MG TAB PO SCH ×2 (19:46→20:24)
[2018-01-10] MEDS: Insulin NPH/Reg Insulin Hm 300 UNITS/3 ML VIAL SC SCH (20:10)
[2018-01-10] MEDS ORDERED: Pantoprazole 40 MG VIAL IVP SCH (21:00)
[2018-01-10] MEDS ORDERED: Lidocaine 2% Viscous Solution 10 ML, Aluminum & Magnesium Hydroxide 30 ML SSW SCH (22:45)
[2018-01-11] MEDS: Metoclopramide HCl 10 MG/2 ML VIAL IVP SCH ×2 (00:50→09:01)
[2018-01-11] MEDS: Lorazepam 2 MG/ML VIAL SLOW IVP PRN ×2 (02:03→11:27)
[2018-01-11] MEDS: Promethazine HCl 25 MG/ML VIAL IM/IV PRN (02:05)
[2018-01-11 05:00] LABS: #Eosinphils 0.1 thou/uL (0.0-0.7); #Lymphocytes 3.1 thou/uL (1.20-3.40); #Monocytes 0.8 thou/uL (0.11-0.59); %Basophils 0.3 % (0.0-1.0); %Eosinophils 0.6 % (0.0-10.0); %Lymphocytes 19.4 % (21.0-51.0); %Monocytes 5.1 % (0.0-10.0); %Neutrophils 74.6 % (42.0-75.0); Hemoglobin 12.5 g/dL (12.0-16.0); Mean Corpuscular HGB CONC 35.3 g/dL (32.0-36.0); Mean Corpuscular Hemoglobin 31.5 pg (27.0-31.0); Mean Corpuscular Volume 89.2 fl (81.0-99.0); Mean Platelet Volume 7.5 fL (7.4-10.4); Platelet Count 266 thou/uL (130-400); RBC Distribution Width 11.7 % (11.5-14.5); Red Blood Cell (RBC) Count 3.96 mill/uL (4.20-5.40); White Blood Cell (WBC) Count 16.1 thou/uL (4.8-10.8)
[2018-01-11 05:28] LABS: Anion Gap 11 mmol/L (10-20); BUN (Urea Nitrogen) 9 mg/dL (7.0-18.7); Calc. Creatinine Clearance 270 mL/min (70-130); Calcium 8.2 mg/dL (7.8-10.44); Carbon Dioxide 24 mmol/L (22-29); Chloride 106 mmol/L (98-107); Estimated GFR-MDRD Greater than 90; Glucose 140 mg/dL (70-105); Potassium 3.4 mmol/L (3.5-5.1); Sodium 138 mmol/L (136-145)
[2018-01-11] MEDS ORDERED: Lorazepam 2 MG/ML VIAL SLOW IVP SCH (06:00)
--- NOTE | 2018-01-11 06:19 | PDOC.FM ---
- Subjective Subjective: Lexis Albrecht seen at bedside this morning. She has continued to have nausea and vomiting. Patient states that she felt well for about two hours last night but the nausea and vomiting have returned. She states that she is miserable. She is still having normal BMs and passing flatus. She denies any fever, chills, chest pain, dyspnea. - Objective MAR Reviewed: Yes Vital Signs & Weight: Vital Signs (12 hours) Temp Pulse Resp BP Pulse Ox 01/10/18 18:53 98.6 F 103 H 20 133/79 98 Weight Weight 123.014 kg I&O: 01/09/18 01/10/18 01/11/18 06:59 06:59 06:59 Intake Total 1989 Result Diagrams: 01/11/18 04:33 01/11/18 04:33 <Praveen Calderón - Last Filed: 01/11/18 08:57> - Objective Vital Signs & Weight: Vital Signs (12 hours) Temp Pulse Resp BP BP Pulse Ox 01/11/18 11:25 97.9 F 88 18 159/85 H 98 01/11/18 09:05 98.1 F 94 18 01/11/18 07:27 98.1 F 94 18 140/95 H 98 01/11/18 02:09 84 16 90/50 L 98 Weight Weight 123.014 kg I&O: 01/10/18 01/11/18 01/12/18 06:59 06:59 06:59 Intake Total 1989 Result Diagrams: 01/11/18 04:33 01/11/18 04:33 <Murphy Calle - Last Filed: 01/11/18 11:53> Phys Exam - Physical Examination patient pacing room, appears uncomfortable but nontoxic HEENT: moist MMs, sclera anicteric Neck: no JVD, supple, full ROM Respiratory: no wheezing, no rales, no rhonchi, clear to auscultation bilateral Cardiovascular: RRR, no significant murmur Gastrointestinal: soft, non-tender, no distention no rebound, guarding Musculoskeletal: no edema, pulses present Neurological: non-focal, normal sensation, moves all 4 limbs Psychiatric: A&O x 3 Deviation from normal: lacks insight Skin: no rash, normal turgor <Praveen Calderón - Last Filed: 01/11/18 08:57> Dx/Plan (1) Intractable nausea and vomiting Code(s): R11.2 - NAUSEA WITH VOMITING, UNSPECIFIED Status: Acute (2) Anxiety and depression Code(s): F41.8 - OTHER SPECIFIED ANXIETY DISORDERS Status: Chronic (3) Cannabis abuse Code(s): F12.10 - CANNABIS ABUSE, UNCOMPLICATED Status: Chronic (4) Diabetes type 2, controlled Code(s): E11.9 - TYPE 2 DIABETES MELLITUS WITHOUT COMPLICATIONS Status: Chronic (5) Obesity (BMI 30.0-34.9) Code(s): E66.9 - OBESITY, UNSPECIFIED Status: Chronic - Plan Plan: (1) Intractible Nausea and Vomiting - Place of obs/medical - Likely secondary to diabetic gastroparesis vs marijuana induced, no signs of obstruction, had BM in ED - UDS positive for marijuana - Schedule reglan and PRN zofran for n/v - IVFs NS @170 ml/hr - added GI cocktail which relieved some symptoms for patient overnight (2) Type 2 DM, uncontrolled - Resume current home regimen, Novolog 15 U SC BID - likely contributing to gastroparesis - Moderate SSI, accuchecks ACHS - Check hga1c (3) Substance abuse-marijuana - UDS positive for thc - peer counselor on cessation - possibly contributing to n/v (4) Anxiety and Depression - continue home regimen - PRN ativan for anxiety/agitation (5) Peripheral Neuropathy - home regimen <Praveen Calderón - Last Filed: 01/11/18 08:57> Attending Addendum - Attending Addendum Date/Time: 01/11/18 1151 I personally evaluated the patient and discussed the management with Dr. Calderón. I agree with the History, Examination, Assessment and Plan documented above with any addition or exceptions noted below. Patient with history of chronic nausea/vomiting associated with gastroparesis and likely cannabinoid hyperemesis syndrome admitted once again for similar symptoms. She has been counselled once again on the need to cease use of marijuana to prevent recurrent trips to the ER. Her labs are overall normal, except an older ABG consistent with primary respiratory alkalosis ( no metabolic component). Her nausea is somewhat improved. We will switch Reglan to PO to help prevent dystonic reactions. Will begin IM Phenergan therapy to help with better control. ADAT. Hopeful discharge this afternoon if tolerating clears. <Murphy Calle R - Last Filed: 01/11/18 11:53>
[2018-01-11] MEDS ORDERED: Lidocaine 2% Viscous Solution 20 ML, Aluminum & Magnesium Hydroxide 30 ML, Donnatal Eli... SSW SCH (08:15)
[2018-01-11] MEDS ORDERED: Enoxaparin Sodium 40 MG/0.4 ML SYRINGE SC SCH (09:00)
[2018-01-11] MEDS: Sodium Chloride 0.9% 1,000 ML IV SCH ×2 (09:01→15:58)
[2018-01-11] MEDS: busPIRone HCl 10 MG TAB PO SCH (09:08)
[2018-01-11] MEDS: Gabapentin 300 MG CAP PO SCH ×2 (09:08→15:58)
[2018-01-11] MEDS: Insulin NPH/Reg Insulin Hm 300 UNITS/3 ML VIAL SC SCH (09:08)
[2018-01-11] MEDS ORDERED: Promethazine HCl 25 MG/ML VIAL IM PRN (09:37)
[2018-01-11 11:32] VITALS: BP 159/85; TEMP 97.9
[2018-01-11] MEDS ORDERED: Insulin NPH/Reg Insulin Hm 300 UNITS/3 ML VIAL SC SCH (21:00)
--- NOTE | 2018-01-11 23:49 | DIS-2 ---
DATE OF ADMISSION: 01/10/2018 DATE OF DISCHARGE: 01/11/2018 RESIDENT: Praveen Calderón MD ADMITTING ATTENDING: Dr. Debora Romeo. DISCHARGE ATTENDING: Dr. Murphy Calle. CONSULTATIONS: None. PROCEDURES: None. ADMISSION DIAGNOSES: 1. Intractable nausea and vomiting. 2. Diabetic gastroparesis. 3. Cannabinoid-induced hyperemesis syndrome. 4. Mild dehydration. DISCHARGE DIAGNOSES: 1. Intractable nausea and vomiting - resolved. 2. Diabetic gastroparesis. 3. Tetrahydrocannabinol-induced hyperemesis syndrome. 4. Type 2 diabetes. 5. Mild dehydration - resolved. DISCHARGE MEDICATIONS: Resume all home medications. 1. Gabapentin 600 mg p.o. t.i.d. 2. Novolin 70/30, 50 units subcu b.i.d. 3. Zofran ODT 4 mg p.o. q.8 hours p.r.n. 4. Buspirone 10 mg p.o. b.i.d. 5. Zyprexa 5 mg p.o. daily. 6. Sertraline HCL 100 mg p.o. daily. 7. Clonazepam 2 mg p.o. daily p.r.n. HISTORY OF PRESENT ILLNESS AND HOSPITAL COURSE: Lexis Albrecht is a 32-year-old female with a past medic al history of type 2 diabetes, diabetic gastroparesis, chronic back pain, fibromyalgia, anxiety, depr ession, and peripheral neuropathy who presented to the ED with a 1-day history of nausea and vomiting . The patient has a history of intractable nausea and vomiting secondary to diabetic gastroparesis i n the past. She states that the nausea and vomiting began at the morning of admission and associated with constant, crampy, diffuse abdominal pain. She denies any fevers, chills, chest pain, dyspnea, or recent illness. She has had normal bowel movements including two in the ED prior to bring her to the floor. There was no blood in her stool. In the ED, she received 2 liters normal saline, Bentyl, Zofran, Reglan, and Ativan for agitation. The patient's vitals are stable and labs were significant for white blood cell count of 16.5. Sodium of 131, bicarb of 18, glucose of 424. The patient was p laced on observation for intractable nausea and vomiting. UDS was positive for cannabinoids and tric yclics. UA was only positive for glucose and ketones. Blood gas was significant for pH of 7.552. T he patient's nausea and vomiting was difficult to control initially. Overnight, the patient received Phenergan, Zofran and Reglan which provided minimal relief to the patient at one point during the mi ddle of the night she requested GI cocktail which improved her symptoms for a couple of hours and ret urned. The patient received a GI cocktail later in the morning on 01/11/2018 and it improved her sym ptoms significantly. The patient was feeling much better in the early afternoon on 01/11/2018 and wa s ready for discharge home. It is likely the patient's symptoms were totally related to exposure to smoke marijuana as well as her diabetic gastroparesis. She had no findings concerning for acute abdo men and no signs of obstruction. The patient's symptoms improved within 24 hours of admission. She was cleared for discharge on 01/11/2015 with instructions to follow up with primary care provider. DISPOSITION: Stable. DISCHARGE INSTRUCTIONS: 1. Location: Home. 2. Diet: Diabetic diet. 3. Activity: As tolerated. 4. Followup: Follow up with primary care provider within a week for hospital admission followup.
== END 2018-01-11 16:12 | disposition home or self-care (01) ==
LOC: ERS 08:15 → 2SW 12:18
PROVIDERS: ADMIT Family Medicine; ATTEND Family Medicine
DX: R11.2 Nausea with vomiting, unspecified (principal); F12.188 Cannabis abuse with other cannabis-induced disorder; R11.10 Vomiting, unspecified; E11.43 Type 2 diabetes mellitus with diabetic autonomic (poly)neuropathy; K31.84 Gastroparesis; E86.0 Dehydration; M79.7 Fibromyalgia; F41.8 Other specified anxiety disorders; E66.9 Obesity, unspecified; Z68.38 Body mass index [BMI] 38.0-38.9, adult; Z79.4 Long term (current) use of insulin; Z79.899 Other long term (current) drug therapy
CPT/HCPCS: 36415; 36416; 80048; 80053; 80306; 80307; 81003; 81025; 82010; 82330; 82803; 83036; 83690; 83735; 84100; 85025; 93005; 96361; 96372; 96374; 96375; 96376; A4216; A4353; C9113; G0378; J1650; J1815; J2060; J2550; J2765

== ENCOUNTER 2018-01-12 07:26 | Emergency (ER) | payer OTHER ==
[2018-01-12] MEDS ORDERED: Famotidine 40 MG/4 ML VIAL IVPB SCH (08:45)
[2018-01-12] MEDS ORDERED: busPIRone HCl 10 MG TAB PO SCH (11:45)
== END 2018-01-12 18:27 ==
LOC: ERS 07:26
DX: F32.9 Major depressive disorder, single episode, unspecified (principal); F41.9 Anxiety disorder, unspecified; F12.929 Cannabis use, unspecified with intoxication, unspecified; E11.9 Type 2 diabetes mellitus without complications; E78.5 Hyperlipidemia, unspecified; E78.2 Mixed hyperlipidemia; Z79.899 Other long term (current) drug therapy; Z79.4 Long term (current) use of insulin
CPT/HCPCS: 96360; 96374

== ENCOUNTER 2018-08-02 01:30 | Emergency (ER) | payer OTHER ==
[2018-08-02] MEDS ORDERED: Sulfameth/Trimethoprim DS 800-160mg TAB ONE (01:54)
== END 2018-08-02 02:12 | disposition home or self-care (01) ==
LOC: SCSER 01:30
DX: L03.314 Cellulitis of groin (principal); B35.4 Tinea corporis; B35.6 Tinea cruris; E11.9 Type 2 diabetes mellitus without complications; E78.2 Mixed hyperlipidemia; F41.9 Anxiety disorder, unspecified; F32.9 Major depressive disorder, single episode, unspecified
CPT/HCPCS: 99282

== ENCOUNTER 2018-10-15 17:14 | Emergency (ER) | payer OTHER, SELFPAY | END 2018-10-15 17:40 | disposition home or self-care (01) | LOC: SCSER 17:14 | DX: H92.02 Otalgia, left ear (principal); E11.43 Type 2 diabetes mellitus with diabetic autonomic (poly)neuropathy; K31.84 Gastroparesis; E78.2 Mixed hyperlipidemia; F41.9 Anxiety disorder, unspecified; F32.9 Major depressive disorder, single episode, unspecified; Z79.4 Long term (current) use of insulin | CPT/HCPCS: 99281 ==

== ENCOUNTER 2019-11-05 22:17 | Observation (INO) | payer MEDICAID, OTHER ==
[~2019-11-05 22:17] MED LIST: Iopamidol-370 76% 500 ML 1 ML ONE
--- NOTE | 2019-11-05 22:42 | PDOC.FPRHP ---
- History of Present Illness Chief Complaint: fever and chills History of Present Illness: 34 y/o F with a pmhx of fibromyalgia, Insulin dependent DM type II- uncontrolled , and chronic back pain presents to the ER due to fever of 103 F. PT c/o chills, nausea, back pain, and slight confusion. Pt states last week she had a stomach virus, and then developed worsening fever , painful hives and chills. Went to [facility] and was admitted for 1 day. There she was treated for otits externa and discharged after one day with ear drops, after receiving levaquin. Pt denies any sinus congestion, facial pain, ear pain/blockage/discharge. Pt states the hive rash has gone away and no longer painful. Denies GOODSON, CP, SOB. Denies dark or bloody stools. + anxiety, denies depression or hallucinations. ED corse: pt given ativan, vanc and zosyn at [place] [facility] and transferred to [place] ED. CTA chest neg for PE. CT abd pelvis: no acute findings - Allergies/Adverse Reactions Allergies Allergy/AdvReac Type Severity Reaction Status Date / Time terbinafine Allergy Severe Angioedema Verified 11/06/19 02:38 - Home Medications Medication Instructions Recorded Confirmed Type OLANZapine [ZyPREXA] 5 mg PO HS 08/28/17 11/06/19 History Gabapentin [Neurontin] 1,200 mg PO BID 11/06/19 11/06/19 History Insulin Glargine,Hum.Rec.Anlog 90 unit SC BID 11/06/19 11/06/19 History [Lantus Solostar] Lactobacillus Acidophilus 1 capsule PO DAILY 11/06/19 11/06/19 History [Probiotic] Multivit With Calcium,Iron,Min 1 tablet PO DAILY 11/06/19 11/06/19 History [Women's Daily Formula] cloNIDine [Catapres] 0.1 mg PO HS 11/06/19 11/06/19 History - History PMHx:Fibroyalgia, DM II uncontrolled, chronic back pain, bladder prolapse PSHx: cholecystectomy FHx: Mother: breast CA grandmother: heart disease grandfather: DM II Social: Denies etoh, and tobacco use. Admits to marijuana use off and on. - Vital signs BP: 119/66 HR: 122 RR: 20 Tmax: 103 Pox: 99% on RA Wt: 152 kg - Physical Exam Constitutional: NAD, awake, alert and oriented -Constitutional: obese HEENT: normocephalic and atraumatic, PERRLA, EOMI, conjunctiva clear, no scleral icterus, grossly normal vision, TM's clear and intact (erythematous ear canals bilaterally, no exudates. L TM has scarring), grossly normal hearing, normal nasal mucosa, MMM, oropharynx clear, good dention Neck: supple, FROM, trachea midline Heart: normal S1/S2, no murmurs/rubs/gallops, pulses present -Heart: Tachycardia, HR 122 BLE Pitting edema Pulses 2+ dorsalis pedis bilaterally Lungs: CTAB, no respiratory distress, good air movement, no rales/rhonchi, no wheezing, no retractions Abdomen: soft, non-tender, bowel sounds present, no masses/distention Musculoskeletal: normal structure, normal tone, ROM grossly normal Neurological: no focal deficit, CN II-XII intact, normal sensation Skin: good turgor, capillary refill <2 seconds -Skin: small, diffuse 2 mm maculopapular rash on upper extremities Heme/Lymphatic: no unusual bruising or bleeding Psychiatric: normal mood and affect FMR H&P: Results - Labs Result Diagrams: 11/06/19 00:25 11/05/19 22:56 - EKG Interpretation EKG: sinus tach HR 125 FMR H&P: A/P - Problem List (1) Leukocytosis Current Visit: Yes Status: Acute Code(s): D72.829 - ELEVATED WHITE BLOOD CELL COUNT, UNSPECIFIED Qualifiers: Leukocytosis type: bandemia Qualified Code(s): D72.825 - Bandemia (2) Tachycardia Current Visit: Yes Status: Acute Code(s): R00.0 - TACHYCARDIA, UNSPECIFIED (3) Fever and chills Current Visit: Yes Status: Acute Code(s): R50.9 - FEVER, UNSPECIFIED (4) DM type 2 (diabetes mellitus, type 2) Current Visit: Yes Status: Acute (5) Cannabis abuse Current Visit: No Status: Chronic Code(s): F12.10 - CANNABIS ABUSE, UNCOMPLICATED - Plan 34 y/o F admitted to med obs for fever, tachycardia, leukocytosis with bandemia 1. Fever - Fever 103 max reported from home - ordered Tylenol PRN for fever and pain. - Pt received 3 L NS, Vanc and Zosyn - considering possible rheumatologic cause of fever vs infectious etiology. Consider consulting ID, vs rheum - ESR, CRP, Procal pending 2. Tachycardia - EKG: sinus tach, HR 125 - IVF LR @ 125 ml/hr - UDS pending 3. Leukocytosis with bandemia - WBC 13.5, 89.3% neutrophils - will keep pt on broad spectrum antibiotics until blood cultures result 4. DM Type II, uncontrolled - pt takes 90 units lantus BID - random glucose 286 5. hx of chronic back pain - pain is 7/10 chronically in neck and lower back - continue gabapentin 6. Fibromyalgia - continue home medications Code Status: Full code DVT ppx: lovenox diet: CC Dispo: stable, admit to medical obs for fever of unknown source for antibiotics until blood cultures result and further workup. FMR H&P: Upper Level - Plan Date/Time: 11/05/19 9402 I, Nader Germain MD, have evaluated this patient and agree with findings/ plan as outlined by food and beverage intern resident. Pertinent changes/additions are listed here. 1. Fever - Unclear etiology and no obvious infectious source - Blood cultures pending - Consider Autoimmune vs infectious etiology - ESR, CRP, Procal ordered - Empiric antibiotics - Consider ECHO for endocarditis, however, no risk factors present at this time 2. Tachycardia - s/p 30 ml/kg bolus in ED setting - continue IVF - CTA PE protocol negative in ED 3. DM2 - HgbA1C at [facility] earlier this week 8.6 - Restart home meds - Accuchecks All other chronic conditions reviewed and medications to be restarted as appropriate. CODE STATUS: FULL CODE PCP: Dr. Perrin Disposition: Stable, will admit to medical for further evaluation and management. Addendum - Attending - Attending Attestation Date/Time: 11/06/19 1032 I personally evaluated the patient and discussed the management with Dr. Escobar I agree with the History, Examination, Assessment and Plan documented above with any addition or exceptions noted below. Patient with recurrent visits with history fever generalized rash, recieved broad spectrum antibiotics and additional history of foul diarrhea and fecal incontinence. Recommend further evaluation stool studies lactoferrin, C diff, stool culture, O&P, hepatitis panel, HIV,and VDRL. Patient with depressive symptoms as well. Should be able to de-escalate antibiotic Rocephin and flagyl. Continue IV rehydration.
--- NOTE | 2019-11-05 23:44 | CT ---
EXAM: CT pulmonary angiogram with IV contrast and 3-D MIP reconstructions PROVIDED CLINICAL HISTORY: Fever COMPARISON: None FINDINGS: There is no evidence for central or segmental pulmonary embolus. The lungs are free of significant opacity. No pleural fluid or pneumothorax apparent. No evidence for thoracic lymph node enlargement. The airway appears patent and of normal caliber. The visualized portions of the upper abdomen demonstrate no acute findings. The osseous structures demonstrate no concerning lytic or blastic lesions. IMPRESSION: No evidence for central or segmental pulmonary embolus.
--- NOTE | 2019-11-05 23:47 | CT ---
CT abdomen and pelvis EXAM: CT abdomen and pelvis with IV contrast PROVIDED CLINICAL HISTORY: None COMPARISON: 08/28/2017 FINDINGS: The visualized lung bases are free of significant opacity. The solid abdominal organs demonstrate an unremarkable CT appearance. There is no bowel dilatation, inflammatory fat stranding, free fluid or free air apparent. There is n o evidence for appendicitis. Changes of prior cholecystectomy. No regional lymph node enlargement apparent. The regional major vascular structures appear unremarkable. The osseous structures demonstrate no concerning lytic or blastic lesions. IMPRESSION: No evidence for an acute process.
[2019-11-05] MEDS ORDERED: Ondansetron PF 4 MG/2 ML Vial ONE (23:51)
[2019-11-06 00:35] LABS: #Eosinphils 0.2 thou/uL (0.0-0.7); #Monocytes 0.5 thou/uL (0.11-0.59); #Neutrophils 8.3 thou/uL (1.40-6.50); %Basophils 0.2 % (0.0-1.0); %Eosinophils 1.8 % (0.0-10.0); %Lymphocytes 9.7 % (21.0-51.0); %Monocytes 4.5 % (0.0-10.0); %Neutrophils 83.9 % (42.0-75.0); Hemoglobin 13.4 g/dL (12.0-16.0); Mean Corpuscular HGB CONC 34.9 g/dL (32.0-36.0); Mean Corpuscular Hemoglobin 32.3 pg (27.0-31.0); Mean Corpuscular Volume 92.5 fL (78.0-98.0); Mean Platelet Volume 7.7 fL (7.4-10.4); Platelet Count 241 thou/uL (130-400); RBC Distribution Width 12.9 % (11.5-14.5); Red Blood Cell (RBC) Count 4.16 mill/uL (4.20-5.40); White Blood Cell (WBC) Count 9.9 thou/uL (4.8-10.8)
[2019-11-06] MEDS ORDERED: Vancomycin 1.5 GRAM/300 ML BAG 1.5 GM in Premix Bag 1 BAG IVPB SCH (00:45)
[2019-11-06 01:35] VITALS: BMI 48.3
[2019-11-06] MEDS: Lactated Ringer's 1,000 ML IV SCH ×4 (01:49→23:38)
[2019-11-06] MEDS ORDERED: Piperacillin/Tazobactam 3.375 GM in Sodium Chloride 0.9% 100 ML IVPB SCH (02:00)
[2019-11-06] MEDS: Acetaminophen 325 MG TAB PO PRN ×3 (02:03→20:40)
[2019-11-06 02:20] LABS: ALT (SGPT) 27 U/L (8-55); AST (SGOT) 19 U/L (5-34); Albumin 3.5 g/dL (3.5-5.0); Alkaline Phosphatase 84 U/L (40-110); Anion Gap 17 mmol/L (10-20); BUN (Urea Nitrogen) 17 mg/dL (7.0-18.7); Bilirubin, Total 0.8 mg/dL (0.2-1.2); Calc. Creatinine Clearance 250 mL/min (70-130); Calcium 7.8 mg/dL (7.8-10.44); Carbon Dioxide 18 mmol/L (22-29); Chloride 103 mmol/L (98-107); Estimated GFR-MDRD 87; Globulin 2.9 g/dL (2.4-3.5); Glucose 220 mg/dL (70-105); Potassium 4.2 mmol/L (3.5-5.1); Protein, Total 6.4 g/dL (6.0-8.3); Sodium 134 mmol/L (136-145)
[2019-11-06] MEDS ORDERED: OLANZapine 5 MG TAB PO SCH ×2 (02:30→21:00)
[2019-11-06] MEDS ORDERED: cloNIDine 0.1 MG TAB PO SCH ×2 (02:30→21:00)
[2019-11-06] MEDS ORDERED: Gabapentin 300 MG CAP PO SCH (02:30)
[2019-11-06 02:45] LABS: Amphetamine Not Detected (NotDetected); Barbiturates Screen Not Detected (NotDetected); Benzodiazepine Screen Detected (NotDetected); Cocaine Metabolite Screen Not Detected (NotDetected); Medtox Control Line Valid? VALID (VALID); Medtox Reader # READER 4; Methadone Not Detected (NotDetected); Methamphetamine Not Detected (NotDetected); Opiate Screen Not Detected (NotDetected); Oxycodone Screen Not Detected (NotDetected); Phencyclidine (PCP) Not Detected (NotDetected); THC/Cannabinoid Screen Detected (NotDetected); Tricyclic Screen Not Detected (NotDetected)
[2019-11-06] MEDS ORDERED: HumaLOG 300 UNITS/3 ML VIAL SC PRN (04:20)
[2019-11-06] MEDS ORDERED: Dextrose 5% in Water 1,000 ML IV PRN (04:20)
[2019-11-06] MEDS ORDERED: Dextrose 50% Abboject 50 ML SYRINGE SLOW IVP PRN (04:20)
[2019-11-06] MEDS: Piperacillin/Tazobactam 3.375 GM in Sodium Chloride 0.9% 100 ML IVPB SCH ×4 (05:05→23:37)
[2019-11-06] MEDS: HumaLOG 300 UNITS/3 ML VIAL SC PRN ×2 (05:06→12:52)
[2019-11-06] MEDS: Ondansetron ODT 4 MG TAB PO PRN (05:06)
--- NOTE | 2019-11-06 06:48 | PDOC.FM ---
- Subjective Subjective: Pt had 2 episodes of diarrhea overnight. She was unable to hold her bowels. She has had 10 episodes of diarrhea a day over the previous couple of days. She denies sexual intercourse in 10 years, no vaginal discharge. She has not been anywhere new, eaten anything abnormal. - Objective Vital Signs & Weight: Vital Signs (12 hours) Temp Pulse Resp BP BP Pulse Ox 11/06/19 04:17 99.0 F 104 H 18 105/64 96 11/06/19 02:49 125/75 11/06/19 02:31 107 H 11/06/19 01:00 99.0 F 123 H 18 125/75 97 Weight Weight 152.861 kg Result Diagrams: 11/06/19 00:25 11/05/19 22:56 Phys Exam - Physical Examination Constitutional: NAD HEENT: PERRLA, moist MMs Neck: no JVD, full ROM Respiratory: no wheezing, clear to auscultation bilateral Cardiovascular: RRR, no significant murmur Gastrointestinal: soft, non-tender, positive bowel sounds Musculoskeletal: pulses present trace to 1+ edema Neurological: non-focal, normal sensation Psychiatric: A&O x 3 Deviation from normal: flat affect Dx/Plan (1) DM type 2 (diabetes mellitus, type 2) Status: Acute (2) Fever and chills Code(s): R50.9 - FEVER, UNSPECIFIED Status: Acute (3) Leukocytosis Code(s): D72.829 - ELEVATED WHITE BLOOD CELL COUNT, UNSPECIFIED Status: Acute Qualifiers: Leukocytosis type: bandemia Qualified Code(s): D72.825 - Bandemia (4) Tachycardia Code(s): R00.0 - TACHYCARDIA, UNSPECIFIED Status: Acute (5) Dehydration Code(s): E86.0 - DEHYDRATION Status: Acute - Plan Plan: # Fever - Unclear etiology and no obvious infectious source - Blood cultures pending - pending fecal lactoferrin, O&P, Stool Culture, Campylobacter, Giardia - Consider Autoimmune vs infectious etiology - ESR, CRP, Procal ordered - Empiric antibiotics - Consider ECHO for endocarditis, however, no risk factors present at this time # Tachycardia - s/p 30 ml/kg bolus in ED setting - continue IVF - CTA PE protocol negative in ED # DM2 - HgbA1C at [facility] earlier this week 8.6 - Restart home meds - Accuchecks # Depression - needs to be addressed in outpt setting. All other chronic conditions reviewed and medications to be restarted as appropriate. CODE STATUS: FULL CODE PCP: Dr. Perrin Disposition: Stable, will admit to medical for further evaluation and management. Addendum - Attending - Attending Attestation Date/Time: 11/06/19 0521 I personally evaluated the patient and discussed the management with Dr. Patiño I agree with the History, Examination, Assessment and Plan documented above with any addition or exceptions noted below.
[2019-11-06] MEDS ORDERED: Insulin Glargine 90 UNITS in Pre-Filled Syringe 1 EACH SC SCH (09:00)
[2019-11-06] MEDS ORDERED: Non-Formulary Item 1 EACH (Insulin Glargine,Hum.Rec.Anlog [Lantus Solostar] 90 UNIT) SC SCH (09:00)
[2019-11-06] MEDS: Multivitamin W/ Minerals 1 TAB PO SCH (09:12)
[2019-11-06] MEDS: Enoxaparin Sodium 40 MG/0.4 ML SYRINGE SC SCH (09:12)
[2019-11-06] MEDS: Gabapentin 300 MG CAP PO SCH ×2 (09:12→20:40)
[2019-11-06] MEDS: Lactinex Tablet PO SCH (09:12)
[2019-11-06 10:32] LABS: Syphilis Antibody Nonreactive (Nonreactive); Syphilis Antibody Index 0.05 S/CO (<1.00 Non-Reactive)
[2019-11-06 10:33] LABS: HBSAg Index 0.19 S/CO (0-0.99); HIV (1/2) Antibody/Antigen Non-Reactive (NonReactive); HIV 1/2 INDEX 0.24 S/CO (<1.00); Hep B Core Total Ab Non-Reactive (NonReactive); Hep B Core Total Index 0.11 S/CO (0-0.79); Hep B Surf AB Non-Reactive (NonReactive); Hep B Surf Ag Non-Reactive S/CO (NonReactive); Hep C IgG Ab Non-Reactive (NonReactive); Hep C Index 0.16 S/CO (0-0.79)
[2019-11-06] MEDS ORDERED: Ketorolac Tromethamine 30 MG/ML VIAL IVP PRN (22:13)
[2019-11-06] MEDS: Insulin Glargine 45 UNITS in Pre-Filled Syringe 1 EACH SC SCH ×2 (22:33→22:34)
[2019-11-07 01:17] LABS: Vancomycin, Trough 23.2 ug/mL
[2019-11-07] MEDS: Piperacillin/Tazobactam 3.375 GM in Sodium Chloride 0.9% 100 ML IVPB SCH ×2 (04:12→10:30)
[2019-11-07] MEDS: Acetaminophen 325 MG TAB PO PRN (04:18)
[2019-11-07 05:49] LABS: #Eosinphils 0.3 thou/uL (0.0-0.7); #Lymphocytes 1.8 thou/uL (1.20-3.40); #Monocytes 0.4 thou/uL (0.11-0.59); #Neutrophils 2.9 thou/uL (1.40-6.50); %Basophils 0.2 % (0.0-1.0); %Eosinophils 6.2 % (0.0-10.0); %Lymphocytes 32.7 % (21.0-51.0); %Monocytes 7.3 % (0.0-10.0); %Neutrophils 53.6 % (42.0-75.0); Hemoglobin 11.7 g/dL (12.0-16.0); Mean Corpuscular HGB CONC 35.7 g/dL (32.0-36.0); Mean Corpuscular Hemoglobin 33.1 pg (27.0-31.0); Mean Corpuscular Volume 92.7 fL (78.0-98.0); Mean Platelet Volume 7.9 fL (7.4-10.4); Platelet Count 190 thou/uL (130-400); RBC Distribution Width 12.8 % (11.5-14.5); Red Blood Cell (RBC) Count 3.53 mill/uL (4.20-5.40); White Blood Cell (WBC) Count 5.4 thou/uL (4.8-10.8)
[2019-11-07 06:15] LABS: ALT (SGPT) 24 U/L (8-55); AST (SGOT) 17 U/L (5-34); Alkaline Phosphatase 63 U/L (40-110); Anion Gap 9 mmol/L (10-20); BUN (Urea Nitrogen) 7 mg/dL (7.0-18.7); Bilirubin, Total 0.4 mg/dL (0.2-1.2); Calc. Creatinine Clearance 280 mL/min (70-130); Calcium 7.5 mg/dL (7.8-10.44); Carbon Dioxide 26 mmol/L (22-29); Chloride 105 mmol/L (98-107); Estimated GFR-MDRD Greater than 90; Globulin 2.6 g/dL (2.4-3.5); Glucose 174 mg/dL (70-105); Potassium 3.6 mmol/L (3.5-5.1); Protein, Total 5.6 g/dL (6.0-8.3); Sodium 136 mmol/L (136-145)
--- NOTE | 2019-11-07 07:03 | PDOC.FM ---
- Subjective Subjective: NAEO. Patient reports feeling nauseous again this morning. She has been able to tolerate fluids though. She denies any fever, chills, abdominal pain, vomiting, diarrhea. When asked about her binge eating she states she was previously on prozac. She was also on prozac for anxiety/depression. She states she recently stopped taking this medication because she ran out of the prescription. She feels it did not really help her symptoms anyway and she didn't notice a change being on or off the medication. She states she has also had CBT in the past when she was diagnosed with PTSD. - Objective MAR Reviewed: Yes Vital Signs & Weight: Vital Signs (12 hours) Temp Pulse Resp BP BP BP Pulse Ox 11/07/19 05:44 98.0 F 82 18 118/67 96 11/06/19 23:52 97.8 F 88 18 122/80 98 11/06/19 20:39 118/76 11/06/19 20:00 98.4 F 85 18 118/76 97 11/06/19 19:19 98.3 F 91 18 100/68 Weight Weight 152.861 kg I&O: 11/06/19 11/07/19 11/08/19 06:59 06:59 06:59 Intake Total 3000 Balance 3000 Result Diagrams: 11/07/19 05:06 11/07/19 05:06 Phys Exam - Physical Examination Constitutional: NAD HEENT: PERRLA, moist MMs, sclera anicteric Neck: supple, full ROM Respiratory: clear to auscultation bilateral Cardiovascular: RRR, no significant murmur Gastrointestinal: soft Musculoskeletal: no edema Neurological: non-focal, moves all 4 limbs Psychiatric: normal affect, A&O x 3 Deviation from normal: flat affect Skin: no rash, normal turgor, cap refill <2 seconds Dx/Plan (1) DM type 2 (diabetes mellitus, type 2) Status: Acute (2) Fever and chills Code(s): R50.9 - FEVER, UNSPECIFIED Status: Acute (3) Leukocytosis Code(s): D72.829 - ELEVATED WHITE BLOOD CELL COUNT, UNSPECIFIED Status: Acute Qualifiers: Leukocytosis type: bandemia Qualified Code(s): D72.825 - Bandemia (4) Tachycardia Code(s): R00.0 - TACHYCARDIA, UNSPECIFIED Status: Acute (5) Anxiety and depression Code(s): F41.8 - OTHER SPECIFIED ANXIETY DISORDERS Status: Chronic - Plan Plan: Fever of unknown origin Unclear etiology and no obvious infectious source. Stool studies negative. Positive lactoferrin. ESR normal, CRP elevated. Consider Autoimmune vs infectious etiology. HIV/RPR/Hep panel neg. - Blood cultures NGTD - CRP positive. Procal indeterminant. Can consider autoimmune studies. Flu/ strep swab pending. - Vanc/zosyn for abx coverage. Will de-escalate once further studies are performed. - Consider ECHO for endocarditis, however, no risk factors present at this time. Tachycardia, resolved s/p 30 ml/kg bolus in ED setting. CTA PE protocol negative in ED - Will give IVF as needed. Tolerating PO for now. Concern for Binge Eating Disorder Nutrition consulted for DM education and discovered patterns related to BED. - Can consider outpatient treatment with [facility] vs other for CBT. CM consulted to help with this. Patient not insured so may be difficult. - Patient previously on prozac for this, does not wish to try another SSRI at this time. She is open to counselling. DM2 HgbA1C at [facility] earlier this week 8.6. A1c 9 here. - Restart home meds - Accuchecks - Diabetes education. Nutrition consulted. Psych issues: Depression/anxiety, PTSD - Needs to be addressed in outpt setting. Previously on prozac. Discussed with patient to consider trying another SSRI. All other chronic conditions reviewed and medications to be restarted as appropriate. CODE STATUS: FULL CODE PCP: Dr. Perrin Disposition: Stable, dc in 1- 2 days Case discussed with Dr. Chamberlain Addendum - Attending - Attending Attestation Date/Time: 11/07/19 1049 I personally evaluated the patient and discussed the management with Dr. Aguirre. I agree with the History, Examination, Assessment and Plan documented above with any addition or exceptions noted below. GI upset improved. d/c home today. Encourage marijuana cessation and DM control. Will send with reglan, zofran, and bentyl for sx control PRN. F/U PCP. Cultures and imaging negative. I suspect this may be a diabetic gastroparesis vs IBS vs cannabis induced hyperemesis picture.
[2019-11-07] MEDS: HumaLOG 300 UNITS/3 ML VIAL SC PRN ×2 (07:15→12:41)
[2019-11-07] MEDS: Ondansetron ODT 4 MG TAB PO PRN (08:06)
[2019-11-07] MEDS: Lactinex Tablet PO SCH (08:07)
[2019-11-07] MEDS: Gabapentin 300 MG CAP PO SCH (08:08)
[2019-11-07] MEDS: Insulin Glargine 45 UNITS in Pre-Filled Syringe 1 EACH SC SCH ×2 (08:09→08:10)
[2019-11-07] MEDS: Enoxaparin Sodium 40 MG/0.4 ML SYRINGE SC SCH (08:09)
[2019-11-07] MEDS: Lactated Ringer's 1,000 ML IV SCH (08:11)
[2019-11-07] MEDS: Multivitamin W/ Minerals 1 TAB PO SCH (08:11)
[2019-11-07 12:15] VITALS: BP 125/81; TEMP 97.9
[2019-11-07] MEDS ORDERED: Dicyclomine 10 MG CAP PO SCH (13:00)
--- NOTE | 2019-11-08 07:25 | PQF ---
[employer] Machine Service Supervisor Crystal Reports Winform ViewerSRI FRIEDMAN STEFFEN BUCIO barby [id number] CLINICAL DOCUMENTATION CLARIFICATION FORM: POST DISCHARGE Addendum to original discharge summary date: ____ Late entry note date: __ DATE: 11/08/2019 ATTN: Steffen Lewis Please exercise your independent, professional judgment in responding to the clarification form. Clinical indicators are provided on the bottom of this form for your review Please check appropriate box(s) to clarify if the following diagnosis has been ruled in or ruled out: Sepsis [ ] Ruled in diagnosis [ ] Continue to treat [ ] Resolved [ ] Ruled out diagnosis [ x ] Cannot rule out diagnosis [ ] Other diagnosis [ x] Unable to determine For continuity of documentation, please document condition throughout progress notes and discharge summary. Thank You. CLINICAL INDICATORS - SIGNS / SYMPTOMS / LABS Sepsis w/o source under final diagnosis - ED provider report Patient repsents to the ER due to fever of 103F - [facility] medicine H and P dated 11/06/[address] Steffne Bucio Tachycardia, EKG sinus tach, HR 125 - [facility] medicine H and P dated 11/06/[address] Steffen Bucio Leukocytosis with bandermia, WBC 13.5, 89.3% neutrophils - [facility] medicine H and P dated 11/06/[address] Steffen Bucio Fever, blood culture pending, consider autoimmune vs infectious etiology - Family progress note dated 11/[address] Steffen Bucio RISK FACTORS Bandemia - [facility] medicine H and P dated 11/06/[address] Steffen Bucio TREATMENTS IV Vancomycin started on 11/05 - Medications IV fluids started on 3 - Medications [employer] Service Supervisor Crystal Reports Winform Viewer (This form is maintained as a part of the permanent medical record) 2014 [employer]. All Rights Reserved Red [email or web address] ANGI
--- NOTE | 2019-11-08 12:50 | DIS ---
DATE OF ADMISSION: 11/05/2019 DATE OF DISCHARGE: 11/07/2019 RESIDENT: Madison Aguirre MD ADMITTING ATTENDING: Stefan Heredia MD DISCHARGE ATTENDING: Wilber Chamberlain MD CONSULTS: Dietitian. PROCEDURES: None. DISCHARGE MEDICATIONS: 1. Bentyl 10 mg oral 4 times daily. 2. Zofran 4 mg oral every 6 hours as needed. 3. Reglan 10 mg oral 4 times daily. 4. Zyprexa 5 mg oral at bedtime. 5. Women's Daily Formula one tablet oral daily. 6. Probiotic one capsule oral daily. 7. Catapres 0.1 mg oral at bedtime. 8. Gabapentin 1200 mg oral twice daily. 9. Lantus 90 units subcutaneously twice daily. DISCONTINUED MEDICATIONS: None. PRIMARY DIAGNOSES: 1. Fever of unknown source 2. tachycardia 3. binge eating disorder SECONDARY DIAGNOSES: 1. Type 2 diabetes 2. depression/anxiety 3. PTSD HISTORY OF PRESENT ILLNESS/HOSPITAL COURSE: This is a 34-year-old female, who presented to the ER because of a fever of 103 degrees Fahrenheit. The patient also complained of chills, nausea, back pain, and slight confusion at the time as well. The patient states that about a week ago, she had a stomach virus that then developed worsening fever, hives as well as chills. She was admitted to the [facility] at that time. She was treated for an otitis externa and discharged after one day with ear drops and after being treated with Levaquin as well. The patient was given Ativan, vancomycin, and Zosyn at the [facility] ER and transferred to our ER. The patient had a negative CTA chest as well as a CT abdomen and pelvis. The patient's vitals were significant for a heart rate of 122 and a temperature of 103 degrees Fahrenheit on admission. The patient's labs were significant for a glucose of 220. The patient was admitted to medical floor for workup of her fever of unknown source. The patient was given Tylenol as needed for fever. She was continued on vancomycin and Zosyn for one day. The patient was also started on fluids for her tachycardia and fever. The patient's workup for her fever revealed a procal that was negative, ESR was normal, CRP was mildly elevated. Stool studies were negative. HIV, RPR, and hepatitis studies negative. The patient had a flu swab done that was negative. The patient's symptoms did improve throughout her stay. She was given Bentyl and Reglan for abdominal pain and nausea that improved with those medications. Her chronic conditions remained stable throughout her stay. It was noted when the patient talked to the dietitian about her diabetes diet that she had some binge like eating behaviors. The patient was previously treated on an SSRI for PTSD and binge eating disorder, but she recently ran out of that and did not want to restart it. I advised the patient that she could try another SSRI and/or do outpatient counseling for CBT. The patient will follow up with her PCP on these issues. DISPOSITION: Stable. DISCHARGE INSTRUCTIONS: 1. Location: Home. 2. Activity: Ad kaylee. 3. Diet: Diabetic diet. 4. Followup: With PCP, Dr. Perrin within one week. Job ID: [id number] MTDD
== END 2019-11-07 13:43 | disposition home or self-care (01) ==
LOC: ERS 22:17 → T4-B 23:16 → INTOOBSV 23:16 → T4-B 11-06 00:56
PROVIDERS: ADMIT Family Medicine; ATTEND Family Medicine
DX: R50.9 Fever, unspecified (principal); R21 Rash and other nonspecific skin eruption; R00.0 Tachycardia, unspecified; D72.825 Bandemia; G89.29 Other chronic pain; M54.9 Dorsalgia, unspecified; M79.7 Fibromyalgia; F12.10 Cannabis abuse, uncomplicated; E78.5 Hyperlipidemia, unspecified; E78.00 Pure hypercholesterolemia, unspecified; E11.43 Type 2 diabetes mellitus with diabetic autonomic (poly)neuropathy; K31.84 Gastroparesis; F41.8 Other specified anxiety disorders; F43.10 Post-traumatic stress disorder, unspecified; R19.7 Diarrhea, unspecified; E66.9 Obesity, unspecified; Z68.42 Body mass index [BMI] 45.0-49.9, adult; Z79.4 Long term (current) use of insulin; Z79.899 Other long term (current) drug therapy; Z88.8 Allergy status to other drugs, medicaments and biological substances
CPT/HCPCS: 36415; 36416; 71275; 74177; 80053; 80202; 80306; 83036; 83605; 83630; 84145; 84443; 84484; 85025; 85652; 86038; 86060; 86140; 86225; 86674; 86704; 86706; 86780; 86803; 87045; 87046; 87324; 87328; 87329; 87340; 87389; 87427; 87449; 87631; 96374; J1650; J1815; J1885; J2405; J2543; J3370; J3490; J7050; Q0162; Q9967

== ENCOUNTER 2020-03-21 21:53 | Emergency (ER) | payer OTHER ==
[2020-03-21] MEDS ORDERED: Ondansetron PF 4 MG/2 ML Vial ONE (22:45)
[2020-03-21 23:07] LABS: #Eosinphils 0.1 thou/uL (0.0-0.7); #Lymphocytes 2.6 thou/uL (1.20-3.40); #Neutrophils 13.8 thou/uL (1.40-6.50); %Basophils 0.1 % (0.0-1.0); %Eosinophils 0.3 % (0.0-10.0); %Monocytes 5.6 % (0.0-10.0); Hemoglobin 13.6 g/dL (12.0-16.0); Mean Corpuscular HGB CONC 34.1 g/dL (32.0-36.0); Mean Corpuscular Hemoglobin 32.1 pg (27.0-31.0); Mean Corpuscular Volume 94.3 fL (78.0-98.0); Platelet Count 281 thou/uL (130-400); RBC Distribution Width 12.6 % (11.5-14.5); Red Blood Cell (RBC) Count 4.24 mill/uL (4.20-5.40); White Blood Cell (WBC) Count 17.5 thou/uL (4.8-10.8)
[2020-03-21 23:12] LABS: ALT (SGPT) 39 U/L (8-55); AST (SGOT) 51 U/L (5-34); Albumin 3.9 g/dL (3.5-5.0); Alkaline Phosphatase 79 U/L (40-110); Anion Gap 13 mmol/L (10-20); BUN (Urea Nitrogen) 10 mg/dL (7.0-18.7); Bilirubin, Total 0.7 mg/dL (0.2-1.2); CK (CPK) 1709 U/L (29-168); Calc. Creatinine Clearance 0 mL/min (70-130); Calcium 8.6 mg/dL (7.8-10.44); Carbon Dioxide 29 mmol/L (22-29); Chloride 96 mmol/L (98-107); Estimated GFR-MDRD Greater than 90; Globulin 3.2 g/dL (2.4-3.5); Glucose 192 mg/dL (70-105); Lipase 21 U/L (8-78); Potassium 3.7 mmol/L (3.5-5.1); Protein, Total 7.1 g/dL (6.0-8.3); Sodium 134 mmol/L (136-145)
[2020-03-21] MEDS ORDERED: Metoclopramide HCl 10 MG/2 ML VIAL ONE (23:16)
[2020-03-21 23:18] LABS: Bilirubin Negative (Negative); Blood, Urine Negative (Negative); Clarity Clear (Clear); Glucose, Urine (Dipstick) Normal (Negative); Ketone, Urine 20 mg/dL (Negative); Leukocyte Negative Leu/uL (Negative); Nitrite Negative (Negative); Protein, Urine (Dipstick) 20 mg/dL (Neg-Trace); Specific Gravity, Urine 1.027 (1.002-1.036); Urobilinogen Normal mg/dL (Less than 2)
[2020-03-21 23:19] LABS: Pregnancy Test - Urine (BHCG) Negative (Negative); Pregu Control Background? CLEAR/WHITE (CLR/WHITE); Pregu Control Bar Appear? YES (CONTROL BAR); Specific Gravity 1.027 (1.002-1.036)
[2020-03-21 23:51] LABS: CKMB 2.7 ng/mL (0-6.6)
[2020-03-22] MEDS ORDERED: Ondansetron ODT 8 MG TAB ONE (00:02)
[2020-03-22 01:19] LABS: Troponin I Less than 0.010 ng/mL (< 0.028)
== END 2020-03-22 02:10 | disposition home or self-care (01) ==
LOC: ERS 21:53
DX: R11.2 Nausea with vomiting, unspecified (principal); E11.9 Type 2 diabetes mellitus without complications; E78.2 Mixed hyperlipidemia; E78.5 Hyperlipidemia, unspecified; F41.9 Anxiety disorder, unspecified; F32.9 Major depressive disorder, single episode, unspecified; Z79.899 Other long term (current) drug therapy; Z79.84 Long term (current) use of oral hypoglycemic drugs
CPT/HCPCS: 36415; 80053; 81003; 81025; 82550; 82553; 83690; 84484; 85025; 93005; 96372; J2405; J2765; Q0162

== ENCOUNTER 2020-10-15 13:30 | Emergency (ER) | payer OTHER ==
[2020-10-15 16:41] LABS: Bilirubin Negative (Negative); Blood, Urine Negative (Negative); Clarity Clear (Clear); Glucose, Urine (Dipstick) Normal (Negative); Ketone, Urine Negative (Negative); Leukocyte Negative Leu/uL (Negative); Nitrite Negative (Negative); Protein, Urine (Dipstick) Negative (Neg-Trace); Specific Gravity, Urine 1.032 (1.002-1.036); Urobilinogen Normal mg/dL (Less than 2)
--- NOTE | 2020-10-15 17:38 | RAD ---
Thoracic spine 3 views: 10/15/2020 HISTORY: Pain, trauma FINDINGS: The thoracic pedicles appear intact on frontal imaging. There is minimal levoscoliosis of t he lower thoracic spine. The lateral examination demonstrates no anterolisthesis or retrolisthesis. No displaced fracture is noted. IMPRESSION: No acute osseous abnormality.
[2020-10-15] MEDS ORDERED: Ketorolac Tromethamine 30 MG/ML VIAL ONE (18:20)
== END 2020-10-15 18:09 | disposition home or self-care (01) ==
LOC: ERS 13:30
DX: G62.9 Polyneuropathy, unspecified (principal); E11.9 Type 2 diabetes mellitus without complications; E78.2 Mixed hyperlipidemia; M79.7 Fibromyalgia; Z79.899 Other long term (current) drug therapy
CPT/HCPCS: 72072; 81003; 96372; J1885